=== PATIENT | female | born 1945 | race Caucasian/White ===

== ENCOUNTER → 2020-12-27 | Outpatient (CLI) | payer OTHER ==
--- NOTE | 2020-12-27 18:25 | CARDNUC ---
[place] [address] CARDIAC NUCLEAR IMAGING REPORT Name: DARNELL CHASE Room: [facility]#: [id number] Admission: 12/27/20 Attend Phys: Juan Manuel Gutierrez, Discharge: Date of : 41 Date of Service: 12/27/20 1824 Report #: [id number] THIS REPORT FOR: cc: Shira Prasad MD, Michelle R. MD Liston, Michael J. MD [facility] ~ APPROVED REPORT Imaging Protocol: Rest Tc-99m/Stress Tc-99m 1 day Study performed: 12/27/2020 12:45:00 Indication: Chest pain Patient Location: Out-Patient Stress Tech: Valentine Ramos Stress Nurse: Terese Adams RN NM Tech:AIMEE Burr Ht: 5 ft 2 in Wt: 155 lbs BSA: 1.72 m2 BMI: 28.34 Medical History Medical History: Diabetes, HTN, Hyperlipidemia, Valvular heart disease Medications: metoprolol Allergies: codeine Cardiac Risk Factors: Age, HTN, Hyperlipidemia, DM Exercise History: Physically active Meds Held (24 hrs): metoprolol Resting Data Rest SPECT myocardial perfusion imaging was performed in supine position 30 minutes following the intravenous injection of 10.3 mCi of Tc-99m Sestamibi. Time of rest injection: 1300 Date: 12/27/2020 The images were gated to evaluate regional wall motion and calculate left ventricular ejection fraction. Administration Route: IV Administration Site: Right AC Exercise Stress At peak stress, the patient was injected intravenously with 34.4mCi of Tc-99m Sestamibi. Time of stress injection: 1420 Date: 12/27/2020 Administration Route: [place] [address] CARDIAC NUCLEAR IMAGING REPORT Name: DARNELL CHASE Room: [facility]#: [id number] Admission: 12/27/20 Attend Phys: Juan Manuel Gutierrez, Discharge: Date of : 41 Date of Service: 12/27/20 1824 Report #: [id number] Administration Site: Right AC Gated Stress SPECT was performed 30 minutes after stress injection. The images were gated to evaluate regional wall motion and calculate left ventricular ejection fraction. Prone imaging was performed. Stress Test Details Stress Test: Exercise stress testing was performed using a Gil protocol. HR Max Heart Rate (APMHR): 143 bpm Resting HR: 69 bpm Target HR (85% APMHR): 121 bpm Max HR Achieved: 136 bpm % of APMHR: 95 Recovery HR: 88 bpm BP Resting BP: 194/84 mmHg Max BP: 211/77 mmHg Recovery BP: 192/81 mmHg ECG Resting ECG: Sinus Rhythm Stress ECG: Sinus Tachycardia ST Change: None Arrhythmia: None Recovery ECG: Sinus Rhythm Recovery ST Change: None Recovery Arrhythmia: None Clinical Reason for Termination: Fatigue Exercise duration: 5 min 21 sec Exercise capacity: 7.05 METs Overall Exercise Capacity for Age: Normal Functional Aerobic Impairment 95% The patient tolerated standard Gil protocol exercise without significant cardiac complaint. Stress ECG Conclusion The baseline twelve-lead EKG shows sinus rhythm without significant ST segment or T wave abnormality. EKGs obtained during and post exercise show sinus rhythm and sinus tachycardia without significant ST segment change when compared to baseline. There were no stress-induced [place] [address] CARDIAC NUCLEAR IMAGING REPORT Name: DARNELL CHASE Room: [facility]#: [id number] Admission: 12/27/20 Attend Phys: Juan Manuel Gutierrez, Discharge: Date of : 41 Date of Service: 12/27/20 1824 Report #: [id number] Study Quality Study: Good Artifact: No artifact Study Data At rest, the left ventricular ejection fraction was 67%.. Post stress, the left ventricular ejection was 68%.. TID = 0.99. Perfusion Perfusion images obtained at rest and post exercise stress show uniform uptake of the radioisotope throughout the myocardium. There were no defects to suggest infarct or ischemia. Wall Motion Normal left ventricular wall motion. Nuclear Conclusion ECG Findings: negative for ischemia Clinical Findings: negative for ischemia Nuclear Findings: negative for ischemia Exercise Capacity: normal Left Ventricular Function: normal Risk Study: low Perfusion images show no defect to suggest infarct or ischemia. Left ventricular systolic function appears normal on gated studies. This is a low risk study. <Conclusion> The baseline twelve-lead EKG shows sinus rhythm without significant ST segment or T wave abnormality. EKGs obtained during and post exercise show sinus rhythm and sinus tachycardia without significant ST segment change when compared to baseline. There were no stress-induced arrhythmias. <ELECTRONICALLY SIGNED> By: Teddy Dockery MD, FACC 12/27/201823 23 23 Teddy Dockery MD, FACC /INF
== END ==
LOC: M.NUC 12-13 08:46
PROVIDERS: ATTEND Internal Medicine
DX: R00.0 Tachycardia, unspecified (principal); R94.39 Abnormal result of other cardiovascular function study; E11.9 Type 2 diabetes mellitus without complications; I10 Essential (primary) hypertension; E78.5 Hyperlipidemia, unspecified